=== PATIENT | male | born 1960 | race Caucasian/White ===

== ENCOUNTER 2018-09-18 10:10 | Outpatient (CLI) | payer BC ==
--- NOTE | 2018-09-18 11:48 | MRI ---
MRI Lumbar Spine WO Con History: M [age] spinal stenosis or lumbar region Comparison: None. Findings: Large cyst inferior pole right kidney. Aortic contour is nonaneurysmal. Paraspinal musculat ure is symmetric. Large cyst left kidney. No marrow infiltrative process. There is diffuse abnormal fluid signal within the posterior elements of the lower thoracic spine, incompletely evaluated. Levels are as follows: L1/L2: Normal disc hydration. Very small bilateral subsequent foraminal posterior disc osteophyte com plex. No neural foraminal or spinal canal narrowing. L2/L3: Low-grade circumferential disc bulge. Mild bilateral neural foraminal narrowing. Spinal canal measures approximately 9 mm. L3/L4: Mild posterior degenerative disc space height loss and broad-based posterior disc osteophyte c omplex. Mild facet arthropathy. Moderate left and mild right neural foraminal narrowing. Spinal canal measures approximately 8 mm. L4/L5: Severe bilateral facet degenerative changes. There is abnormal edema within the bilateral L4 p edicles. Hypertrophic facet changes cause moderate bilateral neural foraminal narrowing. Normal disc hydration. L5/S1: Severe facet arthrosis. Abnormal edema within the pedicles of L5 bilaterally. Small synovial c ysts of both facet joints. Mild bilateral neural foraminal narrowing. Normal disc hydration. Abnormal narrowing of the interspinous space from L1-L5 with subcortical sclerosis and cyst formation . Impression: 1. Abnormal fluid signal within the posterior elements lower thoracic spine incompletely evaluated. M RI thoracic spine with and without contrast recommended. 2. Mild to moderate spondylosis as described with severe facet arthropathy at L4/L5 and L5/S1 with st ress edema within the bilateral lamina. 3. Bilateral renal cysts.
== END 2018-09-18 10:11 | disposition home or self-care (01) ==
LOC: TBSIIMAG 10:10
PROVIDERS: ATTEND Orthopaedic Surgery
DX: M48.061 Spinal stenosis, lumbar region without neurogenic claudication (principal); M47.816 Spondylosis without myelopathy or radiculopathy, lumbar region; N28.1 Cyst of kidney, acquired
CPT/HCPCS: 72148

== ENCOUNTER 2018-11-13 14:04 | Outpatient (CLI) | payer BC ==
--- NOTE | 2018-11-13 15:25 | ULT ---
ULTRASOUND RETROPERITONEUM COMPLETE: (RENAL) DATE: 11/12/2018. HISTORY: A 58-year-old male with renal cyst. FINDINGS: Right kidney: 13 x 7 x 6.5 cm. Left kidney: 12 x 6 x 8 cm. A 3.5 x 3 x 3 cm cyst at lower pole cortex of right kidney, slightly exophytic. A 6.5 x 7.5 x 5 cm large cyst, exophytically protruding from upper pole of left kidney. Bladder volume 235 mL at time of scan. No hydronephrosis. IMPRESSION: 1. Bilateral renal cysts, at least one on each side. 2. Otherwise, negative. JN R POS: [facility]PC
== END 2018-11-13 14:05 | disposition home or self-care (01) ==
LOC: SCSULT 14:04
PROVIDERS: ATTEND Physician Assistant
DX: N28.1 Cyst of kidney, acquired (principal)
CPT/HCPCS: 76770